=== PATIENT | female | born 2000 | race Caucasian/White ===

== ENCOUNTER 2019-08-26 10:41 | Emergency (ER) | payer SELFPAY ==
--- NOTE | ~2019-08-26 | XR_ITS ---
EXAMINATION: XR ankle LT min 3V, XR foot LT min 3V DATE: 08/26/2019 11:11 INDICATION: Inversion injury presenting with dorsal pain and bruising at the left foot and ankle TECHNIQUE: 1. Anteroposterior, mortise, additional oblique and lateral view of the left ankle were obtained. 2. Dorsoplantar, two oblique and lateral views of the left foot were obtained. COMPARISON: None. FINDINGS: Alignment of the foot and ankle is normal. No fracture or osteochondral lesion. Joint spaces are well maintained. No ankle joint effusion. Mild soft tissue swelling over the dorsolateral aspect of the m idfoot. IMPRESSION: 1. No osseous abnormality. Reviewed, dictated and finalized at location A. IMPRESSION: 1. No osseous abnormality. IMPRESSION: 1. No osseous abnormality.
[2019-08-26 10:51] VITALS: BP 118/64; PULSE 98; RESP 18; TEMP 36.8; O2SAT 100
--- NOTE | 2019-08-26 11:19 | ED.LOWEXIN ---
HPI - Extremity Injury (Lower) General Chief Complaint: Extremity Injury, Lower Stated Complaint: left foot injury Time Seen by Provider: 08/26/19 10:44 History of Present Illness HPI Narrative: Patient is a 18-year-old female who presents ER with left ankle pain. Injured herself 2 days ago with a inversion injury to the left ankle. She is riding a skateboard when she injured herself. She has been able to bear weight but continues to have discomfort over the lateral malleolus and over the dorsum of the foot. No new numbness or tingling. Did not suffer any additional injury. Related Data Allergies Allergy/AdvReac Type Severity Reaction Status Date / Time No Known Allergies Allergy Verified 08/26/19 12:09 Review of Systems Musculoskeletal: Musculoskeletal: Reports arthralgias and Denies joint swelling Comments: Left foot and ankle pain. Neurologic: Denies focal weakness and Denies numbness PMFSH Past Medical History Medical History (Updated 08/26/19 @ 12:09 by Joey Poon MD) No significant past medical history Surgical History Surgical History (Updated 08/26/19 @ 12:07 by Joey Poon MD) No significant past surgical history Social History Social History (Updated 08/26/19 @ 12:07 by Joey Poon MD) Smoking status: Never smoker Exam Narrative: Exam Narrative: GENERAL: Well-appearing, well-nourished, and in no acute distress. HEAD: Normocephalic, atraumatic. HEART: Regular rate and rhythm. Normal peripheral pulses. EXTREMITIES: Normal range of motion intact in left ankle. Mild tenderness lateral malleolus left ankle without swelling or bruising. Slight bruising over the dorsum of the left midfoot. No tenderness along the fifth metatarsal. SKIN: Warm, dry, no rash. NEURO: No focal deficits. Alert and oriented x3. Course Course Emergency Course: Patient informed of results. Has her own ankle support device with her. She has now applied it. Recommend anti-inflammatories for home. Vital Signs Vital signs: Vital Signs Temperature 98.2 F 08/26/19 10:51 Pulse Rate 98 08/26/19 10:51 Respiratory Rate 18 08/26/19 10:51 Blood Pressure 118/64 08/26/19 10:51 Pulse Oximetry 100 08/26/19 10:51 Temperature 98.2 F 08/26/19 10:51 Pulse Rate 98 08/26/19 10:51 Respiratory Rate 18 08/26/19 10:51 Blood Pressure 118/64 08/26/19 10:51 Pulse Oximetry 100 08/26/19 10:51 MDM - Extremity Injury (Lower) Imaging Data Radiologist's impression: ITS Impressions Ankle X-Ray 08/26/19 11:15 IMPRESSION: 1. No osseous abnormality. Foot X-Ray 08/26/19 11:15 IMPRESSION: 1. No osseous abnormality. Discharge Plan Discharge Clinical Impression: Ankle sprain and strain Patient Disposition: Home, Self-Care Condition: Stable Instructions: Ankle Sprain (ED) Additional Instructions: Return the ER if you have chest pain or shortness of breath, you cannot keep down food or water, you have fever over 100.4 ?F, you have additional concerns. Prescriptions: New naproxen 500 mg tablet 500 mg PO BID Qty: 20 RF: 0 Follow-up/Referrals: PHYSICIAN NOT ON STAFF,NONSTAFF [Non-Staff] - 1 Week
== END 2019-08-26 12:37 | disposition home or self-care (01) ==
PROVIDERS: Emergency Provider Emergency Medicine
DX: S93.402A Sprain of unspecified ligament of left ankle, initial encounter (principal); S96.912A Strain of unspecified muscle and tendon at ankle and foot level, left foot, initial encounter; X50.9XXA Other and unspecified overexertion or strenuous movements or postures, initial encounter; Y93.51 Activity, roller skating (inline) and skateboarding
CPT/HCPCS: 73610; 73630; 99283